=== PATIENT | male | born 1960 | race Two or more races ===

== ENCOUNTER 2024-02-03 14:23 | Emergency (ER) | payer OTHER ==
[2024-02-03 14:30] VITALS: TEMP 98.5; BMI 27.3
[2024-02-03] MEDS ORDERED: KETOROLAC TROMETHAMINE 30 MG/1 ML VIAL ONE (15:31)
[2024-02-03] MEDS ORDERED: LIDOCAINE 4% PATCH TP ONE (15:31)
[2024-02-03] MEDS ORDERED: METHOCARBAMOL 500 MG TABLET ONE (15:31)
[2024-02-03] MEDS ORDERED: DEXAMETHASONE SOD PHOSPHATE 10 MG/1 ML VIAL ONE (15:31)
[2024-02-03] MEDS ORDERED: ACETAMINOPHEN 500 MG TABLET (FP) ONE (15:31)
[2024-02-03] MEDS: LIDOCAINE 4% PATCH TP ONE (15:41)
[2024-02-03] MEDS: METHOCARBAMOL 500 MG TABLET PO ONE (15:42)
[2024-02-03] MEDS: DEXAMETHASONE SOD PHOSPHATE 10 MG/1 ML VIAL IM ONE (15:42)
[2024-02-03] MEDS: KETOROLAC TROMETHAMINE 30 MG/1 ML VIAL IM ONE (15:42)
[2024-02-03] MEDS: ACETAMINOPHEN 500 MG TABLET (FP) PO ONE (15:42)
[2024-02-03 17:36] VITALS: BP 146/77; PULSE 102; RESP 20
[2024-02-03] MEDS ORDERED: LIDOCAINE PATCH REMOVAL MC SCH (22:00)
== END 2024-02-03 19:02 | disposition home or self-care (01) ==
LOC: JERFT 14:23 → JER 14:23 → JERFT 19:02
PROC: 3E023GC Introduction of Other Therapeutic Substance into Muscle, Percutaneous Approach (ICD-10-PCS; principal; 2024-02-03)
PROC: 3E0133Z Introduction of Anti-inflammatory into Subcutaneous Tissue, Percutaneous Approach (ICD-10-PCS; 2024-02-03)
DX: M48.00 Spinal stenosis, site unspecified (principal); M54.50 Low back pain, unspecified
CPT/HCPCS: 72131-TC; 93005; 93010; 99284-25; J1100

== ENCOUNTER 2024-02-06 10:53 | Inpatient (IN) | payer OTHER ==
[2024-02-06 11:42] VITALS: BMI 27.3
[2024-02-06] MEDS ORDERED: morphine SULFATE 4 MG/ML VIAL ONE (13:04)
[2024-02-06 13:09] LABS: BASO % 0.3 % (0-2.0); EOS % 0.1 % (0-4.5); HEMATOCRIT 44.5 % (35.4-49); HEMOGLOBIN 15.5 GM/dL (11.7-16.9); LYMPH % 7.5 % (8-40); MCH 30.2 pg (25.7-33.7); MCHC 34.9 g/dl (32.0-35.9); MEAN CELL VOLUME 86.6 fl (80-96); MEAN PLT VOLUME 8.5 fl (7.5-11.1); MONO % 1.5 % (3.8-10.2); NEUT % 90.6 % (42.8-82.8); PLATELET COUNT 279 10^3/uL (134-434); RBC 5.14 M/mm3 (4.00-5.60); RDW 13.3 % (11.9-15.9); WHITE BLOOD COUNT 15.7 K/mm3 (4.0-10.0)
[2024-02-06] MEDS: morphine CARPU-JECT 4 MG/1 ML DISP.SYRIN IVPUSH ONE (13:09)
[2024-02-06] MEDS: SODIUM CHLORIDE 1,000 ML IV STA (13:09)
[2024-02-06 13:14] LABS: INR 0.93 (0.83-1.09); PROTHROMBIN TIME (PATIENT) 10.5 SEC (9.7-13.0)
[2024-02-06 13:45] LABS: POTASSIUM 4.1 mmol/L (3.5-5.1)
[2024-02-06 13:48] LABS: CALCIUM 9.6 mg/dL (8.5-10.1)
[2024-02-06 13:54] LABS: TOT PROT 7.8 g/dl (6.4-8.2)
[2024-02-06 13:55] LABS: BILIRUBIN,TOTAL 0.9 mg/dL (0.2-1)
[2024-02-06 13:57] LABS: CREATININE 1.1 mg/dL (0.55-1.3)
[2024-02-06] MEDS ORDERED: NALOXONE HCL 0.4 MG/ML VIAL IVPUSH PRN (17:46)
[2024-02-06] MEDS ORDERED: ONDANSETRON 4 MG/2 ML VIAL IVPUSH PRN (17:46)
[2024-02-06] MEDS ORDERED: HYDROmorphone HCl 2 MG/ML VIAL IVPB PRN (17:46)
[2024-02-06] MEDS ORDERED: MORPHINE SULFATE 2 MG/ML SYRINGE IVPUSH PRN (17:46)
[2024-02-06] MEDS ORDERED: morphine SULFATE 4 MG/ML VIAL IVPUSH PRN (17:57)
[2024-02-06] MEDS: LACTATED RINGERS SOLUTION 1,000 ML/1,000 ML INFUS.BAG IV SCH (19:20)
[2024-02-06] MEDS: ACETAMINOPHEN 1000 MG/100 ML BAG IVPB SCH (19:20)
[2024-02-06] MEDS: GABAPENTIN 300 MG CAPSULE PO ONE (19:39)
[2024-02-06] MEDS: HYDROmorphone HCL CARPU-JECT 2 MG/1 ML DISP.SYRIN IVPB PRN (21:33)
[2024-02-07 09:32] LABS: HEMATOCRIT 40.7 % (35.4-49); HEMOGLOBIN 13.9 GM/dL (11.7-16.9); MCH 30.4 pg (25.7-33.7); MCHC 34.2 g/dl (32.0-35.9); MEAN PLT VOLUME 8.4 fl (7.5-11.1); PLATELET COUNT 255 10^3/uL (134-434); RBC 4.57 M/mm3 (4.00-5.60); RDW 13.2 % (11.9-15.9); WHITE BLOOD COUNT 10.2 K/mm3 (4.0-10.0)
[2024-02-07 09:46] LABS: POTASSIUM 4.1 mmol/L (3.5-5.1)
[2024-02-07 10:00] LABS: ALBUMIN 3.2 g/dl (3.4-5.0); CALCIUM 8.7 mg/dL (8.5-10.1)
[2024-02-07 10:02] LABS: BLOOD UREA NITROGEN 17.6 mg/dL (7-18)
[2024-02-07 10:04] LABS: CREATININE 0.9 mg/dL (0.55-1.3)
[2024-02-07 10:06] LABS: BILIRUBIN,TOTAL 1.2 mg/dL (0.2-1); TOT PROT 6.9 g/dl (6.4-8.2)
[2024-02-07] MEDS: DOCUSATE SODIUM 100 MG CAPSULE (FP) PO SCH ×2 (10:19→23:42)
[2024-02-07 11:28] LABS: INR 0.9 (0.83-1.09); PROTHROMBIN TIME (PATIENT) 10.2 SEC (9.7-13.0)
[2024-02-07 11:31] LABS: ACTIVATED PTT 25.1 SECONDS (25.2-36.5)
[2024-02-07] MEDS ORDERED: GENTAMICIN SO4 80 MG/2 ML VIAL ONE (14:46)
[2024-02-07] MEDS ORDERED: VANCOMYCIN 1,000 MG VIAL (RESTRICTED TO ID ONLY) ONE ×2 (14:46→18:04)
[2024-02-07] MEDS ORDERED: LIDOCAINE 1%/EPI 1:100000 (20 ML MULTI DOSE VIAL) ONE (14:47)
[2024-02-07] MEDS ORDERED: BUPIVACAINE LIPOSOME/PF (EXPAREL) 266 MG/20 ML VIAL ONE (14:47)
[2024-02-07] MEDS ORDERED: LIDOCAINE HCL/PF 2% SDV 5ML VIAL ONE (15:46)
[2024-02-07] MEDS ORDERED: PROPOFOL 20 ML ONE ×2 (15:46→17:49)
[2024-02-07] MEDS ORDERED: ROCURONIUM BROMIDE 50 MG/5 ML SYRINGE ONE (15:47)
[2024-02-07] MEDS ORDERED: SUCCINYLCHOLINE CHLORIDE 200 MG/10 ML SYRINGE ONE (15:47)
[2024-02-07] MEDS ORDERED: MIDAZOLAM HCL 2 MG/2 ML SINGLE DOSE VIAL ONE (15:47)
[2024-02-07] MEDS: ceFAZolin SODIUM 1 GM VIAL IVPB ONE (18:00)
[2024-02-07] MEDS: VANCOMYCIN 1,000 MG VIAL (RESTRICTED TO ID ONLY) IVPB ONE (18:00)
[2024-02-07] MEDS ORDERED: ceFAZolin SODIUM 1 GM VIAL ONE (18:04)
[2024-02-07] MEDS ORDERED: DEXAMETHASONE SOD PHOSPHATE 4 MG/1 ML VIAL ONE (18:04)
[2024-02-07] MEDS ORDERED: TRANEXAMIC ACID 1000 MG/10 ML VIAL ONE (18:04)
[2024-02-07] MEDS: LIDOCAINE 1%/EPI 1:100000 (20 ML MULTI DOSE VIAL) IJ ONE (18:07)
[2024-02-07] MEDS: BUPIVACAINE HCL/PF 0.5% (5 MG/ML) 30 ML VIAL IJ ONE (19:55)
[2024-02-07] MEDS: BUPIVACAINE LIPOSOME/PF (EXPAREL) 266 MG/20 ML VIAL NR ONE (19:55)
[2024-02-07] MEDS ORDERED: LACTATED RINGERS SOLUTION 1,000 ML IV SCH (20:15)
[2024-02-07] MEDS: LACTATED RINGERS SOLUTION 1,000 ML/1,000 ML INFUS.BAG IV SCH (20:30)
[2024-02-07] MEDS ORDERED: ONDANSETRON 4 MG/2 ML VIAL IVPUSH PRN ×2 (20:31→20:56)
[2024-02-07] MEDS ORDERED: CYCLOBENZAPRINE HCL 5 MG TABLET PO PRN (20:35)
[2024-02-07] MEDS: ACETAMINOPHEN 1000 MG/100 ML BAG IVPB ONE (20:35)
[2024-02-07] MEDS: LACTATED RINGERS SOLUTION 1,000 ML IV SCH (22:30)
[2024-02-07] MEDS: HEPARIN NA (PORCINE) 5,000 UNITS/ML 1ML VIAL SQ SCH (23:42)
[2024-02-08] MEDS: CEFAZOLIN 1 GM in DEXTROSE 5%-WATER - 50 ML IVPB SCH (01:41)
[2024-02-08] MEDS: ACETAMINOPHEN 1000 MG/100 ML BAG IVPB SCH (01:41)
[2024-02-08 08:32] LABS: HEMATOCRIT 39.3 % (35.4-49); HEMOGLOBIN 13.6 GM/dL (11.7-16.9); MCH 30.7 pg (25.7-33.7); MCHC 34.7 g/dl (32.0-35.9); MEAN CELL VOLUME 88.5 fl (80-96); MEAN PLT VOLUME 8.8 fl (7.5-11.1); PLATELET COUNT 253 10^3/uL (134-434); RBC 4.44 M/mm3 (4.00-5.60); RDW 13.5 % (11.9-15.9); WHITE BLOOD COUNT 10.6 K/mm3 (4.0-10.0)
[2024-02-08 08:33] LABS: BASO % 0.1 % (0-2.0); HEMATOCRIT 38.1 % (35.4-49); HEMOGLOBIN 13.3 GM/dL (11.7-16.9); LYMPH % 10.5 % (8-40); MCHC 34.9 g/dl (32.0-35.9); MEAN CELL VOLUME 88.7 fl (80-96); MEAN PLT VOLUME 8.5 fl (7.5-11.1); MONO % 4.7 % (3.8-10.2); NEUT % 84.7 % (42.8-82.8); PLATELET COUNT 251 10^3/uL (134-434); RBC 4.29 M/mm3 (4.00-5.60); RDW 13.2 % (11.9-15.9); WHITE BLOOD COUNT 11.1 K/mm3 (4.0-10.0)
[2024-02-08] MEDS ORDERED: DOCUSATE SODIUM 100 MG CAPSULE (FP) PO SCH (10:00)
[2024-02-08] MEDS ORDERED: ACETAMINOPHEN 1000 MG/100 ML BAG IVPB PRN (16:34)
[2024-02-08] MEDS ORDERED: KETOROLAC TROMETHAMINE 15 MG/ML VIAL IVPUSH PRN (16:38)
[2024-02-08] MEDS: oxyCODONE HCL 5 MG TABLET PO PRN (21:23)
[2024-02-08] MEDS: ACETAMINOPHEN 500 MG TABLET (FP) PO SCH (21:24)
[2024-02-09] MEDS: MELATONIN 5 MG TABLETS PO ONE (01:53)
[2024-02-09] MEDS: oxyCODONE HCL 5 MG TABLET PO PRN (04:59)
[2024-02-09 08:40] LABS: HEMATOCRIT 37.7 % (35.4-49); HEMOGLOBIN 13.3 GM/dL (11.7-16.9); MCH 31.1 pg (25.7-33.7); MCHC 35.3 g/dl (32.0-35.9); MEAN PLT VOLUME 8.8 fl (7.5-11.1); PLATELET COUNT 233 10^3/uL (134-434); RBC 4.29 M/mm3 (4.00-5.60); RDW 13.3 % (11.9-15.9); WHITE BLOOD COUNT 12.2 K/mm3 (4.0-10.0)
[2024-02-09 08:54] LABS: POTASSIUM 3.9 mmol/L (3.5-5.1)
[2024-02-09 08:57] LABS: ALBUMIN 3.3 g/dl (3.4-5.0); BLOOD UREA NITROGEN 18.2 mg/dL (7-18); MAGNESIUM 2.2 mg/dL (1.8-2.4)
[2024-02-09 09:00] LABS: PHOSPHOROUS 3.5 mg/dL (2.5-4.9)
[2024-02-09 09:01] LABS: BILIRUBIN,TOTAL 1.7 mg/dL (0.2-1); TOT PROT 6.8 g/dl (6.4-8.2)
[2024-02-09 09:03] LABS: CALCIUM 8.8 mg/dL (8.5-10.1)
[2024-02-10 07:43] LABS: HEMOGLOBIN 13.7 GM/dL (11.7-16.9); MCH 30.4 pg (25.7-33.7); MCHC 33.5 g/dl (32.0-35.9); MEAN CELL VOLUME 90.9 fl (80-96); MEAN PLT VOLUME 9.3 fl (7.5-11.1); PLATELET COUNT 192 10^3/uL (134-434); RBC 4.51 M/mm3 (4.00-5.60); RDW 13.1 % (11.9-15.9); WHITE BLOOD COUNT 9.9 K/mm3 (4.0-10.0)
[2024-02-10 07:58] LABS: POTASSIUM 4.2 mmol/L (3.5-5.1)
[2024-02-10 08:01] LABS: ALBUMIN 3.1 g/dl (3.4-5.0); BLOOD UREA NITROGEN 14.6 mg/dL (7-18); CALCIUM 8.3 mg/dL (8.5-10.1); MAGNESIUM 2.2 mg/dL (1.8-2.4)
[2024-02-10 08:03] LABS: CREATININE 0.9 mg/dL (0.55-1.3)
[2024-02-10 08:05] LABS: PHOSPHOROUS 3.3 mg/dL (2.5-4.9)
[2024-02-10 08:06] LABS: BILIRUBIN,TOTAL 1.2 mg/dL (0.2-1); TOT PROT 6.9 g/dl (6.4-8.2)
[2024-02-10] MEDS: MAGNESIUM HYDROX 2400MG/30ML ORAL SUSPENSION 30 ML CUP PO PRN (10:40)
[2024-02-10] MEDS: POLYETHYLENE GLYCOL (HEALTHYLAX) 3350 17 GM PACKET PO SCH (10:40)
[2024-02-10] MEDS: guaiFENesin/D-METHORPHAN HB 10 ML UNIT-DOSE CUPS PO PRN (14:45)
[2024-02-10 20:45] VITALS: RESP 18
[2024-02-10] MEDS: MELATONIN 5 MG TABLETS PO SCH (21:35)
[2024-02-10] MEDS: SENNOSIDES 8.6MG TABLET (FP) PO SCH (21:36)
[2024-02-11 07:09] LABS: HEMATOCRIT 40.4 % (35.4-49); HEMOGLOBIN 13.6 GM/dL (11.7-16.9); MCH 30.1 pg (25.7-33.7); MCHC 33.7 g/dl (32.0-35.9); MEAN CELL VOLUME 89.3 fl (80-96); MEAN PLT VOLUME 8.9 fl (7.5-11.1); PLATELET COUNT 245 10^3/uL (134-434); RBC 4.53 M/mm3 (4.00-5.60); RDW 13.1 % (11.9-15.9); WHITE BLOOD COUNT 10.6 K/mm3 (4.0-10.0)
[2024-02-11 07:19] LABS: POTASSIUM 4.5 mmol/L (3.5-5.1)
[2024-02-11 07:23] LABS: CALCIUM 8.6 mg/dL (8.5-10.1); MAGNESIUM 2.4 mg/dL (1.8-2.4)
[2024-02-11 07:24] LABS: BLOOD UREA NITROGEN 16.1 mg/dL (7-18)
[2024-02-11] MEDS ORDERED: oxyCODONE HCL 5 MG TABLET PO PRN ×2 (07:24)
[2024-02-11] MEDS ORDERED: SENNOSIDES 8.6MG TABLET (FP) PO SCH (07:25)
[2024-02-11 07:26] LABS: CREATININE 0.9 mg/dL (0.55-1.3); PHOSPHOROUS 3.3 mg/dL (2.5-4.9)
[2024-02-11 07:28] LABS: BILIRUBIN,TOTAL 0.8 mg/dL (0.2-1); TOT PROT 7.2 g/dl (6.4-8.2)
[2024-02-11 09:45] VITALS: TEMP 99.5
[2024-02-11] MEDS: POLYETHYLENE GLYCOL (HEALTHYLAX) 3350 17 GM PACKET PO SCH (10:53)
[2024-02-11 14:18] VITALS: BP 126/69; PULSE 91
[2024-02-11] MEDS: ACETAMINOPHEN 500 MG TABLET (FP) PO PRN (14:42)
== END 2024-02-11 17:00 | disposition home or self-care (01) | DRG 455 ==
LOC: JER 10:53 → JERBED 17:27 → J5S 18:43 → J4S 02-07 22:57
PROVIDERS: ADMIT Internal Medicine; ATTEND Internal Medicine
PROC: 0SG0071 Fusion of Lumbar Vertebral Joint with Autologous Tissue Substitute, Posterior Approach, Posterior Column, Open Approach (ICD-10-PCS; 2024-02-07)
PROC: 00NY0ZZ Release Lumbar Spinal Cord, Open Approach (ICD-10-PCS; 2024-02-07)
PROC: 0SB20ZZ Excision of Lumbar Vertebral Disc, Open Approach (ICD-10-PCS; 2024-02-07)
PROC: 0QB00ZX Excision of Lumbar Vertebra, Open Approach, Diagnostic (ICD-10-PCS; 2024-02-07)
PROC: 4A1004G Monitoring of Central Nervous Electrical Activity, Intraoperative, Open Approach (ICD-10-PCS; 2024-02-07)
PROC: 0SG00AJ Fusion of Lumbar Vertebral Joint with Interbody Fusion Device, Posterior Approach, Anterior Column, Open Approach (ICD-10-PCS; principal; 2024-02-07 16:00)
DX: M51.26 Other intervertebral disc displacement, lumbar region (principal); M48.061 Spinal stenosis, lumbar region without neurogenic claudication; K59.00 Constipation, unspecified; R05.9 Cough, unspecified; R22.9 Localized swelling, mass and lump, unspecified
CPT/HCPCS: 36415; 72131-TC; 72148-TC; 76000-TC-FY; 80053; 83735; 84100; 85025; 85027; 85610; 85730; 86850; 86900; 86901; 88304-TC; 93005; 93010; 94760; 97116-GP; 97161-GP; 99285-25; C1713; C1889; J0131; J1644